=== PATIENT | female | born 1945 | race Caucasian/White ===

== ENCOUNTER 2016-04-03 20:19 | Emergency (ER) | payer OTHER ==
--- NOTE | 2016-04-03 20:30 | UC ---
Complaint Female HPI - HPI Summary HPI Summary: stinging with urination "this is like my 200 bladder infection" Denies nausea , vomiting, fevers, chills and flank pain - History Of Current Complaint Chief Complaint: UCGU Stated Complaint: BURNING URINATION Time Seen by Provider: 04/03/16 20:45 Hx Obtained From: Patient ?: No Onset/Duration: Sudden Onset, Lasting Days - 1, Still Present Timing: Constant Severity Initially: Mild Severity Currently: Mild Character: Burning - stinging Aggravating Factor(s): Urination Alleviating Factor(s): Position Associated Signs And Symptoms: Positive: Negative Related Hx: Similar Episode/Dx as: - past UTI - Allergies/Home Medications Allergies/Adverse Reactions: Allergies Allergy/AdvReac Type Severity Reaction Status Date / Time Erythromycin Allergy Severe intestinal Verified 09/09/15 08:39 infection iodine compound Allergy Severe Anaphylatic Uncoded 09/09/15 08:39 Shock PMH/Surg Hx/FS Hx/Imm Hx Previously Healthy: Yes Endocrine History Of: Denies: Diabetes, Thyroid Disease Cardiovascular History Of: Denies: Cardiac Disorders, Hypertension Respiratory History Of: Denies: COPD, Asthma GI/ History Of: Denies: Ulcer - Surgical History Surgical History: Yes Surgery Procedure, Year, and Place: Emergency surgery after post hemorrhage. 1952 Tonsils (hemorrhage) Emergency surgery to repair hemorrhage at that time. 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 resulting in hysterectomy. Ovarian cyst history. Total. surgeries is 9. 2002 tonsil regrew had second tonsillectomy. - Family History Known Family History: Positive: None - no reported cardiovascular issues in family lineage, Other - Social History Occupation: Employed Full-time Lives: With Family Alcohol Use: Occasionally Substance Use Type: None Smoking Status (MU): Never Smoked Tobacco - Immunization History Most Recent Influenza Vaccination: 2014/2015 season Most Recent Tetanus Shot: 2011 Review of Systems Constitutional: Negative Skin: Negative Eyes: Negative ENT: Negative Respiratory: Negative Cardiovascular: Negative Gastrointestinal: Negative Genitourinary: Dysuria Motor: Negative Neurovascular: Negative Musculoskeletal: Negative Neurological: Negative Psychological: Negative All Other Systems Reviewed And Are Negative: Yes Physical Exam Triage Information Reviewed: Yes Appearance: Well-Appearing, No Pain Distress, Well-Nourished Vital Signs Reviewed: Yes Eye Exam: Normal Eyes: Positive: Conjunctiva Clear ENT Exam: Normal ENT: Positive: Normal ENT inspection, Hearing grossly normal, Pharynx normal, TMs normal. Negative: Nasal congestion, Nasal drainage, Tonsillar swelling, Tonsillar exudate, Trismus, Muffled/hoarse voice Dental Exam: Normal Neck exam: Normal Neck: Positive: Supple, Nontender, No Lymphadenopathy Respiratory Exam: Normal Respiratory: Positive: Chest non-tender, Lungs clear, Normal breath sounds, No respiratory distress, No accessory muscle use Cardiovascular Exam: Normal Cardiovascular: Positive: RRR, No Murmur, Pulses Normal, Brisk Capillary Refill Abdominal Exam: Normal Abdomen Description: Positive: Nontender, No Organomegaly, Soft Bowel Sounds: Positive: Present Musculoskeletal Exam: Normal Musculoskeletal: Positive: Strength Intact, ROM Intact, No Edema Neurological Exam: Normal Neurological: Positive: Alert, Muscle Tone Normal Psychological Exam: Normal Skin Exam: Normal Diagnostics - Laboratory Diagnostic Studies Completed/Ordered: 500 leuks, 300 blood in ua Complaint Female Dx - Course Course Of Treatment: culture urine, macrobid, increase fluids follow with PCP recheck prn - Differential Dx/Diagnosis Differential Diagnosis/HQI/PQRI: Pelvic Inflammatory Disease, Renal Colic, Urinary Tract Infection Provider Diagnoses: UTI Discharge - Discharge Plan Condition: Stable Disposition: HOME Prescriptions: Nitrofurantoin Monohyd Macro [Macrobid] 100 mg PO BID #20 cap Patient Education Materials: Phenazopyridine (By mouth), Urinary Tract Infection in Women (ED) Referrals: Ulises Cardenas MD [Primary Care Provider] - If Needed
[2016-04-03] MEDS ORDERED: Nitrofurantoin Macrocrystals* 50 MG CAP PO ONE (20:57)
[2016-04-03 21:23] VITALS: BP 126/81
== END 2016-04-03 21:29 | disposition home or self-care (01) ==
LOC: UCEAST 20:19
DX: N39.0 Urinary tract infection, site not specified (principal); Z87.440 Personal history of urinary (tract) infections; Z88.1 Allergy status to other antibiotic agents
CPT/HCPCS: 81002; 87077; 87086; 87186; 99212; A9270-GY; G0463

== ENCOUNTER 2016-05-04 20:17 | Emergency (ER) | payer OTHER ==
[2016-05-04 20:32] VITALS: BP 105/62
--- NOTE | 2016-05-04 21:39 | UC ---
Respiratory Complaint HPI - HPI Summary HPI Summary: COntinued cough after a viral uri, and has noted some blood streaking on stool - History of Current Complaint Chief Complaint: UCRespiratory Stated Complaint: COUGH Time Seen by Provider: 05/04/16 20:32 Hx Obtained From: Patient Hx Last Menstrual Period: n/a ?: No Onset/Duration: Gradual Onset, Lasting Weeks Timing: Constant Severity Initially: Mild Pain Intensity: 0 Pain Scale Used: 0-10 Numeric Character: Cough: Nonproductive Aggravating Factors: Nothing Alleviating Factors: Nothing Associated Signs And Symptoms: Positive: URI - Allergies/Home Medications Allergies/Adverse Reactions: Allergies Allergy/AdvReac Type Severity Reaction Status Date / Time Erythromycin Allergy Severe intestinal Verified 05/04/16 20:33 infection iodine compound Allergy Severe Anaphylatic Uncoded 05/04/16 20:33 Shock Home Medications: Home Medications busPIRone TAB* [Buspar TAB*] 05/04/16 [History] PMH/Surg Hx/FS Hx/Imm Hx Previously Healthy: Yes Endocrine History Of: Denies: Diabetes, Thyroid Disease Cardiovascular History Of: Denies: Cardiac Disorders, Hypertension Respiratory History Of: Denies: COPD, Asthma GI/ History Of: Denies: Ulcer - Surgical History Surgical History: Yes Surgery Procedure, Year, and Place: Emergency surgery after post hemorrhage. 1952 Tonsils (hemorrhage) Emergency surgery to repair hemorrhage at that time. 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 resulting in hysterectomy. Ovarian cyst history. Total. surgeries is 9. 2002 tonsil regrew had second tonsillectomy. - Family History Known Family History: Positive: None - no reported cardiovascular issues in family lineage, Other - Social History Occupation: Employed Full-time Lives: With Family Alcohol Use: Occasionally Substance Use Type: None Smoking Status (MU): Never Smoked Tobacco - Immunization History Most Recent Influenza Vaccination: season Most Recent Tetanus Shot: 2011 Review of Systems Constitutional: Negative Skin: Negative Eyes: Negative ENT: Negative Respiratory: Cough Cardiovascular: Negative Gastrointestinal: Negative Genitourinary: Negative Motor: Negative Neurovascular: Negative Musculoskeletal: Negative Neurological: Negative Psychological: Negative All Other Systems Reviewed And Are Negative: Yes Physical Exam Triage Information Reviewed: Yes Appearance: Well-Appearing, No Pain Distress, Well-Nourished Vital Signs: Initial Vital Signs Temp 98.8 F 03/03/17 20:24 Pulse 59 05/04/16 20:24 Resp 16 05/04/16 20:24 BP 105/62 05/04/16 20:24 Pulse Ox 100 05/04/16 20:24 Eye Exam: Normal Eyes: Positive: Conjunctiva Clear ENT Exam: Normal ENT: Positive: Normal ENT inspection, Hearing grossly normal, Pharynx normal, Nasal congestion, Nasal drainage. Negative: Tonsillar swelling, Tonsillar exudate, Trismus, Muffled/hoarse voice Dental Exam: Normal Neck exam: Normal Neck: Positive: Supple, Nontender Respiratory Exam: Normal Respiratory: Positive: Chest non-tender, Lungs clear, Normal breath sounds, No respiratory distress, No accessory muscle use Cardiovascular Exam: Normal Cardiovascular: Positive: RRR, No Murmur, Pulses Normal, Brisk Capillary Refill Abdominal Exam: Normal Abdomen Description: Positive: Nontender, No Organomegaly, Soft. Negative: CVA Tenderness (R), CVA Tenderness (L), Distended, Guarding Bowel Sounds: Positive: Present Musculoskeletal Exam: Normal Musculoskeletal: Positive: Strength Intact, ROM Intact Neurological Exam: Normal Neurological: Positive: Alert, Muscle Tone Normal Psychological Exam: Normal Psychological: Positive: Normal Response To Family Skin Exam: Normal UC Diagnostic Evaluation - Laboratory O2 Sat by Pulse Oximetry: 100 Respiratory Course/Dx - Course Course Of Treatment: flonase for nasal drainage, metamucil and prep h suppos. increase fluids follow with pcp in 1 week as planned - Differential Dx/Diagnosis Differential Diagnosis/HQI/PQRI: Bronchitis, Sinusitis Provider Diagnoses: Rhinnitis, post viral cough, internal hemorroids Discharge - Discharge Plan Condition: Stable Disposition: HOME Patient Education Materials: Laxative, Bulk-forming (By mouth), Fluticasone ( Into the nose), Hemorrhoids (ED), Rhinosinusitis (ED) Referrals: Ulises Cardenas MD [Primary Care Provider] - 05/11/16 (as planned )
== END 2016-05-04 20:52 | disposition home or self-care (01) ==
LOC: UCEAST 20:17
DX: J31.0 Chronic rhinitis (principal); R05 Cough; K64.8 Other hemorrhoids; Z88.1 Allergy status to other antibiotic agents
CPT/HCPCS: 99211; G0463

== ENCOUNTER 2016-05-09 19:45 | Emergency (ER) | payer OTHER ==
[2016-05-09 20:25] VITALS: BP 146/71
[2016-05-09] MEDS ORDERED: Cefdinir 250mg/5 ml* 100 ml ORAL.SUSP PO ONE (21:37)
--- NOTE | 2016-05-09 21:37 | UC ---
Complaint Female HPI - HPI Summary HPI Summary: 3 DAYS OF DYSURIA. HAS HAD SEVERAL UTIS RECENTLY. NO FEVER, NAUSEA OR BACK PAIN. HAS HAD HYSTERECTOMY. UNSURE IF ANY BLADDER PROLAPSE. ADMITS TO HAVING STRESS INCONTINENCE. IS CONCERNED ABOUT RECURRENT UTI. - History Of Current Complaint Chief Complaint: UCGU Stated Complaint: UTI Time Seen by Provider: 05/09/16 21:08 Hx Obtained From: Patient Hx Last Menstrual Period: n/a Onset/Duration: Gradual Onset, Lasting Days, Still Present Timing: Constant Severity Initially: Moderate Severity Currently: Moderate Pain Intensity: 0 Pain Scale Used: 0-10 Numeric Character: Burning Aggravating Factor(s): Urination Alleviating Factor(s): Nothing Associated Signs And Symptoms: Negative: Fever, Back Pain, Vaginal Bleeding/ Discharge, Vaginal Discharge, Nausea, Vomiting(# Of Episodes =), Genital Swelling, Genital Blisters - Allergies/Home Medications Allergies/Adverse Reactions: Allergies Allergy/AdvReac Type Severity Reaction Status Date / Time Erythromycin Allergy Severe intestinal Verified 05/09/16 20:25 infection iodine compound Allergy Severe Anaphylatic Uncoded 05/09/16 20:25 Shock PMH/Surg Hx/FS Hx/Imm Hx Previously Healthy: Yes Endocrine History Of: Denies: Diabetes, Thyroid Disease Cardiovascular History Of: Denies: Cardiac Disorders, Hypertension Respiratory History Of: Denies: COPD, Asthma GI/ History Of: Denies: Ulcer - Surgical History Surgical History: Yes Surgery Procedure, Year, and Place: Emergency surgery after post hemorrhage. 1952 Tonsils (hemorrhage) Emergency surgery to repair hemorrhage at that time. 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 resulting in hysterectomy. Ovarian cyst history. Total. surgeries is 9. 2002 tonsil regrew had second tonsillectomy. - Family History Known Family History: Negative: Hypertension - Social History Alcohol Use: Occasionally Substance Use Type: None Smoking Status (MU): Never Smoked Tobacco - Immunization History Most Recent Influenza Vaccination: season Most Recent Tetanus Shot: 2011 Review of Systems Constitutional: Negative Respiratory: Negative Cardiovascular: Negative Gastrointestinal: Abdominal Pain Genitourinary: Dysuria, Frequency All Other Systems Reviewed And Are Negative: Yes Physical Exam Triage Information Reviewed: Yes Appearance: Well-Appearing, No Pain Distress, Well-Nourished Vital Signs: Initial Vital Signs Temp 97.4 F 05/09/16 20:22 Pulse 67 05/09/16 20:22 Resp 12 05/09/16 20:22 BP 146/71 05/09/16 20:22 Pulse Ox 99 05/09/16 20:22 Vital Signs Reviewed: Yes Eyes: Positive: Conjunctiva Clear ENT: Positive: Hearing grossly normal Neck: Positive: Supple Respiratory: Positive: No respiratory distress, No accessory muscle use Cardiovascular: Positive: Pulses Normal Abdomen Description: Positive: Soft. Negative: CVA Tenderness (R), CVA Tenderness (L), Distended, Guarding Musculoskeletal: Positive: No Edema Neurological: Positive: Alert Psychological: Positive: Age Appropriate Behavior Skin: Negative: rashes Diagnostics - Laboratory Diagnostic Studies Completed/Ordered: URINE DIP SP. GR. 1.025, TRACE BLOOD, POSITIVE NITRITES, 1+ LEUKS Complaint Female Dx - Differential Dx/Diagnosis Provider Diagnoses: UTI Discharge - Discharge Plan Condition: Stable Disposition: HOME Prescriptions: Cefdinir 250mg/5 ml* [Omnicef 250 mg/5 ml*] 300 mg PO BID #4 cap Patient Education Materials: Urinary Tract Infection in Women (ED) Referrals: Ulises Cardenas MD [Primary Care Provider] - If Needed Additional Instructions: WE WILL TREAT YOUR UTI WITH CEFDINIR TODAY. YOUR URINE WILL BE SENT FOR CULTURE. WE WILL ALSO SEND IT FOR TESTING FOR A LESS COMMONLY TESTED FOR ORGANISM WHICH IF POSITIVE WILL NEED TREATMENT WITH AN ALTERNATIVE ANTIBIOTIC. PLEASE FOLLOW-UP WITH YOUR [id number] IN [place] AND CONSIDER EVALUATION FOR PELVIC FLOOR WEAKNESS/STRESS INCONTINENCE OR BLADDER PROLAPSE THESE CONDITIONS MAY INCREASE RISK OF RECURRENT UTI. GIVEN YOUR SYMPTOMS OF STRESS INCONTINENCE YOU MAY BENEFIT FROM PELVIC FLOOR PHYSICAL THERAPY. CALL [facility] IF YOU ARE INTERESTED IN PELVIC FLOOR CONDITIONING. [phone].
[2016-05-14 14:43] LABS: Ureaplasma Source URINE; Ureaplasma parvum PCR Negative; Ureaplasma urealyticum PCR Negative
== END 2016-05-09 22:00 | disposition home or self-care (01) ==
LOC: UCEAST 19:45
DX: N39.0 Urinary tract infection, site not specified (principal); R03.0 Elevated blood-pressure reading, without diagnosis of hypertension; Z88.1 Allergy status to other antibiotic agents
CPT/HCPCS: 81003; 87077; 87086; 87186; 87798; 99213; G0463

== ENCOUNTER 2016-07-07 13:43 | Emergency (ER) | payer OTHER ==
[2016-07-07 14:18] VITALS: BP 114/59
--- NOTE | 2016-07-07 15:01 | UC ---
Complaint Female HPI - HPI Summary HPI Summary: Mild urinary burning for 3-4 days. Did at-home test strip for UTI, saw nitrites and white blood cells. Had urinary sx some months/years ago that turned out to be BV, and took 10 days of flagyl for it. Denies fever, vomiting, back pain. - History Of Current Complaint Chief Complaint: UCGU Stated Complaint: UTI COMPLAINT Time Seen by Provider: 07/07/16 14:29 Hx Obtained From: Patient Hx Last Menstrual Period: n/a ?: No Onset/Duration: Gradual Onset, Lasting Days Timing: Constant Severity Initially: Mild Severity Currently: Mild Character: Burning Aggravating Factor(s): Urination Associated Signs And Symptoms: Negative: Fever, Back Pain, Vaginal Discharge, Nausea - Allergies/Home Medications Allergies/Adverse Reactions: Allergies Allergy/AdvReac Type Severity Reaction Status Date / Time Erythromycin Allergy Severe intestinal Verified 05/09/16 20:25 infection Sulfa Antibiotics Allergy GI Upset Verified 07/07/16 14:19 iodine compound Allergy Severe Anaphylatic Uncoded 05/09/16 20:25 Shock Home Medications: Home Medications Escitalopram Oxalate [Lexapro] 5 mg PO 07/07/16 [History] Estradiol [Estrogel] 0.06 % TD 07/07/16 [History] Multiple Vitamins W/ Minerals [Multivitamin Women] 1 tab PO 07/07/16 [History] PMH/Surg Hx/FS Hx/Imm Hx Previously Healthy: Yes Endocrine History Of: Denies: Diabetes, Thyroid Disease Cardiovascular History Of: Denies: Cardiac Disorders, Hypertension Respiratory History Of: Denies: COPD, Asthma GI/ History Of: Denies: Ulcer - Surgical History Surgical History: Yes Surgery Procedure, Year, and Place: Emergency surgery after post hemorrhage. 1952 Tonsils (hemorrhage) Emergency surgery to repair hemorrhage at that time. 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 resulting in hysterectomy. Ovarian cyst history. Total. surgeries is 9. 2002 tonsil regrew had second tonsillectomy. - Family History Known Family History: Positive: None - no reported cardiovascular issues in family lineage, Other Negative: Hypertension - Social History Lives: Alone Alcohol Use: Occasionally Substance Use Type: None Smoking Status (MU): Never Smoked Tobacco - Immunization History Most Recent Influenza Vaccination: 2015/2016 season Most Recent Tetanus Shot: 2011 Review of Systems Constitutional: Negative Skin: Negative Eyes: Negative ENT: Negative Respiratory: Negative Cardiovascular: Negative Gastrointestinal: Negative Genitourinary: Dysuria Motor: Negative Neurovascular: Negative Musculoskeletal: Negative Neurological: Negative Psychological: Negative All Other Systems Reviewed And Are Negative: Yes Physical Exam Triage Information Reviewed: Yes Appearance: Well-Appearing, No Pain Distress, Well-Nourished Vital Signs: Initial Vital Signs Temp 98.0 F 07/07/16 14:14 Pulse 65 07/07/16 14:14 Resp 18 07/07/16 14:14 BP 114/59 07/07/16 14:14 Pulse Ox 97 07/07/16 14:14 Vital Signs Reviewed: Yes Eye Exam: Normal Eyes: Positive: Conjunctiva Clear ENT Exam: Normal ENT: Positive: Normal ENT inspection, Hearing grossly normal, Pharynx normal, TMs normal Dental Exam: Normal Neck exam: Normal Neck: Positive: Supple, Nontender, No Lymphadenopathy Respiratory Exam: Normal Respiratory: Positive: Chest non-tender, Lungs clear, Normal breath sounds, No respiratory distress, No accessory muscle use Cardiovascular Exam: Normal Cardiovascular: Positive: RRR, No Murmur Abdomen Description: Negative: CVA Tenderness (R), CVA Tenderness (L) Musculoskeletal Exam: Normal Neurological Exam: Normal Neurological: Positive: Alert Psychological Exam: Normal Skin Exam: Normal Complaint Female Dx - Differential Dx/Diagnosis Provider Diagnoses: dysuria Discharge - Discharge Plan Condition: Stable Disposition: HOME Prescriptions: Clindamycin SUPP (NF) [Cleocin 100 MG SUPP (NF)] 100 mg VAGINAL BEDTIME #3 sup Patient Education Materials: Dysuria (ED) Referrals: Ulises Cardenas MD [Primary Care Provider] - Additional Instructions: As we discussed, you do not have strong signs of urinary infection today. I am sending a urine culture. Swab pending to evaluate possible bacterial vaginosis or yeast vaginitis, but I am treating you for possible bacterial vaginosis.
--- NOTE | 2016-07-10 10:55 | UC ---
Progress - Progress Note Progress Note: stop cleocin. Start clotrimazole. start cipro (urine cx). F/u Dr. Cardenas (PCP) in 1-2 week for recheck.
== END 2016-07-07 15:11 | disposition home or self-care (01) ==
LOC: UCEAST 13:43
DX: R30.0 Dysuria (principal); Z88.3 Allergy status to other anti-infective agents
CPT/HCPCS: 81003; 87077; 87086; 87186; 87480; 87510; 99212; G0463

== ENCOUNTER 2016-08-21 19:58 | Emergency (ER) | payer OTHER ==
[2016-08-21 20:30] VITALS: BP 96/53
[2016-08-21] MEDS ORDERED: Cephalexin CAP* 500 MG PO ONE (23:14)
--- NOTE | 2016-09-21 14:49 | UC ---
Complaint Female HPI - HPI Summary HPI Summary: PT WITH H/O RECURRENT UTI WITH DYSURIA, FREQUENCY AND URGENCY. PT SEES A URO- RISK INTERN IN [place] AND IS SCHEDULED FOR A CYSTOSCOPY IN OCTOBER. - History Of Current Complaint Chief Complaint: UCGU Stated Complaint: UTI COMPLAINT Time Seen by Provider: 08/21/16 22:50 Hx Obtained From: Patient Hx Last Menstrual Period: n/a Onset/Duration: Gradual Onset, Lasting Days, Still Present Timing: Intermittent Severity Initially: Moderate Severity Currently: Moderate Pain Intensity: 0 Pain Scale Used: 0-10 Numeric Character: Burning Aggravating Factor(s): Urination Alleviating Factor(s): Nothing Associated Signs And Symptoms: Negative: Fever, Back Pain, Vaginal Bleeding/ Discharge, Vaginal Discharge, Nausea - Allergies/Home Medications Allergies/Adverse Reactions: Allergies Allergy/AdvReac Type Severity Reaction Status Date / Time Erythromycin Allergy Severe intestinal Verified 08/27/16 12:30 infection Sulfa Antibiotics Allergy GI Upset Verified 08/27/16 12:30 iodine compound Allergy Severe Anaphylatic Uncoded 08/27/16 12:30 Shock Home Medications: Home Medications Trimethoprim TAB* 100 mg PO Q12H 08/21/16 [History Confirmed 08/24/16] PMH/Surg Hx/FS Hx/Imm Hx - Additional Past Medical History Additional PMH: FREQUENT UTI - Surgical History Surgical History: Yes Surgery Procedure, Year, and Place: Emergency surgery after post hemorrhage. 1952 Tonsils (hemorrhage) Emergency surgery to repair hemorrhage at that time. 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 [employer] surgeries post hemorrhage, history of endometriosis with scraping of tissue. resulting in hysterectomy. Ovarian cyst history. Total. surgeries is 9. 2002 tonsil regrew had second tonsillectomy. - Family History Known Family History: Positive: None - no reported cardiovascular issues in family lineage, Other Negative: Hypertension - Social History Alcohol Use: Occasionally Substance Use Type: None Smoking Status (MU): Never Smoked Tobacco - Immunization History Most Recent Influenza Vaccination: season Most Recent Tetanus Shot: 2011 Review of Systems Constitutional: Negative Respiratory: Negative Cardiovascular: Negative Gastrointestinal: Abdominal Pain Genitourinary: Dysuria, Frequency, Urgency All Other Systems Reviewed And Are Negative: Yes Physical Exam Triage Information Reviewed: Yes Appearance: Well-Appearing, No Pain Distress, Well-Nourished Vital Signs: Initial Vital Signs Temp 98.9 F 08/21/16 20:27 Pulse 57 08/21/16 20:27 Resp 20 08/21/16 20:27 BP 96/53 08/21/16 20:27 Pulse Ox 98 08/21/16 20:27 Vital Signs Reviewed: Yes Eyes: Positive: Conjunctiva Clear ENT: Positive: Hearing grossly normal Neck: Positive: Supple Respiratory: Positive: No respiratory distress, No accessory muscle use Cardiovascular: Positive: Pulses Normal Abdomen Description: Positive: Other: - MILD SUPRAPUBIC TENDERNESS. Negative: CVA Tenderness (R), CVA Tenderness (L), Distended, Guarding Musculoskeletal: Positive: No Edema Neurological: Positive: Alert Psychological: Positive: Age Appropriate Behavior Skin: Negative: rashes Diagnostics - Laboratory Diagnostic Studies Completed/Ordered: URINE DIP SP. GR. 1.020, 2+ LEUKS, POS NITRITES Complaint Female Dx - Differential Dx/Diagnosis Provider Diagnoses: UTI Discharge - Discharge Plan Condition: Stable Disposition: HOME Prescriptions: Cephalexin CAP* [Keflex 500 CAP*] 500 mg PO BID #12 cap Patient Education Materials: Urinary Tract Infection in Women (ED) Referrals: Masha Mustafa MD [Primary Care Provider] - If Needed Additional Instructions: URINE DIP POSITIVE FOR UTI. WILL SEND FOR CULTURE AND TREAT WITH KEFLEX FOR 7 DAYS. FOLLOW-UP WITH YOUR URO-RISK INTERN IN [place]. CALL ME HERE IF YOU DO NOT FEEL YOU ARE RESPONDING TO THE ANTIBIOTICS.
== END 2016-08-21 23:24 | disposition home or self-care (01) ==
LOC: UCEAST 19:58
DX: N39.0 Urinary tract infection, site not specified (principal); Z88.1 Allergy status to other antibiotic agents; Z88.2 Allergy status to sulfonamides
CPT/HCPCS: 81003; 87077; 87086; 87186; 99212; A9270-GY; G0463

== ENCOUNTER 2016-08-27 11:44 | Day surgery (SDC) | payer OTHER ==
--- NOTE | 2016-08-23 15:48 | HP ---
PREOPERATIVE HISTORY AND PHYSICAL: DATE OF VISIT/ENCOUNTER: 08/23/2016 DATE OF ADMISSION: She is scheduled for right cataract surgery on 08/27/[address]. Rubin Anthony at [facility]. 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 She is scheduled for cataract surgery on 08/27/2016 at [facility] to be done by Dr. Moy Anthony. PAST MEDICAL HISTORY: Includes a previous hysterectomy and bilateral ovariectomy in the early . She had a peritonsillar abscess in 2000. She has a history of mild hyperlipidemia, which does no t require medication treatment. She also has a history of Gilbert's syndrome with fasting bilirubin in the range of 1.5 to 2.0 without any symptoms or complications. She also has a longstanding hist ory of recurrent urinary tract infections. CURRENT MEDICATIONS: 1. Lexapro 10 mg half tab per day. 2. Valtrex 500 mg t.i.d. p.r.n. for her herpes simplex outbreaks. 3. Estrace vaginal cream applied to be urethral opening daily. 4. Lunesta 2 mg h.s. p.r.n. insomnia. 5. Ambien 5 mg h.s. p.r.n. insomnia, which she uses very rarely. 6. She is currently on trimethoprim 100 mg for prevention of urinary tract infection and she is cur rently on a 7-day course of Keflex 100 mg once a day, which will be completed on 08/28/2016. This i s being used for recurrent urinary tract infection. ALLERGIES: She is allergic to IV CONTRAST, allergic to SHELLFISH. She has a number of environmenta l allergens including POLLENS and HOUSE DUST. MORPHINE causes agitation. The following antibiotics do not cause allergic reactions but cause GI upset, these include Biaxin, Macrodantin, and erythrom ycin. Fosamax is also associated with diarrhea but not a true allergy. 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 She auguste s never smoked cigarettes. She very rarely drinks any alcohol. Mother had coronary artery disease and myocardial infarction. Father chronic lymphocytic leukemia, myelodysplasia, and cutaneous melan jocelyn. One sister had a cutaneous melanoma. Maternal grandmother and maternal aunt both had breast c ancer and maternal grandfather had diabetes. REVIEW OF SYSTEMS: Positive for symptoms of right cataract, mainly scattering of right when driving . She also has symptoms of urinary frequency and dysuria and is currently being treated for urinary tract infection. Other than those symptoms, she enjoys good health. She specifically denies any p roblems with shortness of breath, chest pain, palpitations, dizzy spells. She has no GI symptoms. No neurologic symptoms. PHYSICAL EXAMINATION VITAL SIGNS: Blood pressure is 130/70; pulse 68 and regular. HEENT: Normal Ears, Nose, and Throat. No signs of inflammation or infection. No adenopathy. Norm al thyroid. Normal carotids without bruits. LUNGS: Clear. HEART: Regular. Normal S1 and S2. No murmurs, gallops, or extra sounds. No JVD. ABDOMEN: Soft and nontender. No masses or organomegaly. BACK: No CVA tenderness. EXTREMITIES: No cyanosis, clubbing, or edema. No signs of phlebitis. NEUROLOGIC: Intact with normal refluxes. SKIN: No rashes or suspicious lesions. IMPRESSION: Right cataract. She is an acceptable medical risk for anesthesia and surgery. [id number]/[facility] #: [id number]
[~2016-08-27 11:44] MED LIST: Acetaminophen TAB* 325 MG PO PRN; Buffered Lidocaine 0.9% SYRIN* 5 ML/SYR SYRINGE INTRADERM ONE
[2016-08-27] MEDS ORDERED: Midazolam* 1 MG/ML 2 ML VIAL (2 MG) ONE ×2 (12:40→13:02)
[2016-08-27 13:43] VITALS: BP 137/71
[2016-08-27] MEDS ORDERED: Lidocaine 1% MPF* 2 ML VIAL ONE (14:22)
[2016-08-27] MEDS ORDERED: Povidone Iodine 5% OPTH* 30 ML BTL ONE (14:22)
[2016-08-27] MEDS ORDERED: Phenylephrine 2.5% OPTH.SOL* 2 ML BTL ONE (14:22)
[2016-08-27] MEDS ORDERED: Neomycin/Polymy/Dex OPHTH.OIN* 3.5 GM ONE (14:22)
[2016-08-27] MEDS ORDERED: Cyclopentolate 1% OPTH.SOL* 2 ML BTL ONE (14:22)
[2016-08-27] MEDS ORDERED: Flurbiprofen 0.03% OPTH.SOL* 2.5 ML BTL ONE (14:22)
[2016-08-27] MEDS ORDERED: Tropicamide 1% OPTH.SOL* BTL ONE (14:22)
[2016-08-27] MEDS ORDERED: acetaZOLAMIDE TAB* 250 MG ONE (14:22)
[2016-08-27] MEDS ORDERED: Buffered Lidocaine 0.9% SYRIN* 5 ML/SYR SYRINGE ONE (14:23)
[2016-08-27] MEDS ORDERED: Tetracaine 0.5% OPTH.SOL 4 ML* 1 DROP BTL ONE (14:23)
--- NOTE | 2016-08-28 09:05 | OP ---
DATE OF OPERATION: 08/27/16 - [facility] DATE OF : 49 SURGEON: Moises Peterson MD ANESTHESIOLOGIST: Moy Montenegro MD ANESTHESIA: Monitored anesthesia care. PRE-OP DIAGNOSIS: Cataract, right eye. POST-OP DIAGNOSIS: Cataract, right eye. OPERATIVE PROCEDURE: Cataract surgery of the right eye. IMPLANTS: SN60WF 18.5 diopter lens to the right eye. COMPLICATIONS: None. DESCRIPTION OF PROCEDURE: The patient was given phenylephrine 2.5% and cyclopentolate 1% eye drops to the operative eye in the preoperative area. The patient was brought to the operating room where a time-out was taken to identify the correct patient, site, and side of surgery. The patient's right eye was prepped and draped in the usual sterile fashion with 5% Betadine. A second time- out was taken to verify the correct patient, site, and side of surgery, and correct lens selection. A lid speculum was placed to the right eye. A 1-mm paracentesis blade was used to make a clear corneal incision in the superotemporal position. Preservative free 1% lidocaine was injected into the anterior chamber. DisCoVisc was injected in the anterior chamber. A 2.75 mm keratome blade was used to make a triplanar incision at the inferotemporal position. A cystotome initiated the capsulorrhexis which was completed with Utrata forceps in a continuous and curvilinear manner. Hydrodissection of the lens was performed with BSS on a cannula. The lens could be spun in a capsular bag. The phacoemulsification handpiece was used with a [id number] technique to remove to nucleus in its entirety with 12.3 CDE. The I/A handpiece was then used to removed the residual cortical lens material. DisCoVisc was injected to inflate the capsular bag. The planned SN60WF 18.5 diopter lens was injected in the capsular bag. The residual DisCoVisc was removed from the eye with the I/A handpiece. The corneal incisions were hydrated and no leaks occurred at physiologic pressure around 20 mmHg per palpation. The lid speculum was removed and drapes removed. Maxitrol ointment was placed to the surface of the operative eye. Adhesive patch and shield was placed on the operative eye. The patient was taken to the postoperative area in stable condition. [id number]/[facility] #: [id number] MTDD
== END 2016-08-27 14:00 | disposition home or self-care (01) ==
LOC: OREAST 11:44
PROVIDERS: ATTEND Student in an Organized Health Care Education/Training Program
DX: H25.11 Age-related nuclear cataract, right eye (principal)
CPT/HCPCS: A9270-GY; J2250; V2632

== ENCOUNTER 2017-02-05 21:36 | Emergency (ER) | payer OTHER ==
[2017-02-05 21:57] VITALS: BP 110/60
--- NOTE | 2017-02-05 22:18 | UC ---
Complaint Female HPI - HPI Summary HPI Summary: Pt presents with episode of dysuria this morning. Pt states has frequent UTI and this felt similar. Pt states 1 dose of macrobid and drank water. Pt states her symptoms have resolved. Pt's last UTI approx 6months ago and was placed on prophylatic macrobid by urogenital specialist in [place]. pt denies fevers, chill. no n/v/d. No vaginal discharge, odor, itching. No lesions. Pt states had diarrhea on Saturday and was not home so wasn't able to "clean as well as I'd like." Pt's medications reviewed this visit - History Of Current Complaint Chief Complaint: UCGU Stated Complaint: PAINFUL URINATION Time Seen by Provider: 02/05/17 21:46 Hx Obtained From: Patient Hx Last Menstrual Period: hysterectomy ?: No Onset/Duration: Sudden Onset Timing: Intermittent Severity Initially: Mild Severity Currently: None Pain Intensity: 0 - Allergies/Home Medications Allergies/Adverse Reactions: Allergies Allergy/AdvReac Type Severity Reaction Status Date / Time Erythromycin Allergy Severe intestinal Verified 02/05/17 21:45 infection Sulfa Antibiotics Allergy GI Upset Verified 02/05/17 21:45 iodine compound Allergy Severe Anaphylatic Uncoded 02/05/17 21:45 Shock Home Medications: Home Medications Nitrofurantoin Monohyd Macro [Macrobid] 50 mg PO 02/05/17 [History] PMH/Surg Hx/FS Hx/Imm Hx Previously Healthy: Yes GI/ History: Other Other GI/ History: recurrent UTI - Surgical History Surgical History: Yes Surgery Procedure, Year, and Place: Emergency surgery after post hemorrhage. 1952 Tonsils (hemorrhage) Emergency surgery to repair hemorrhage at that time. 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 resulting in hysterectomy. Ovarian cyst history. Total. surgeries is 9. 2002 tonsil regrew had second tonsillectomy. - Family History Known Family History: Positive: None - no reported cardiovascular issues in family lineage, Other Negative: Hypertension - Social History Alcohol Use: Weekly Alcohol Amount: 1-2 glasses of wine per week Substance Use Type: None Smoking Status (MU): Never Smoked Tobacco - Immunization History Most Recent Influenza Vaccination: season Most Recent Tetanus Shot: 2011 Review of Systems Constitutional: Negative Genitourinary: Dysuria, Frequency, Urgency All Other Systems Reviewed And Are Negative: Yes Physical Exam Triage Information Reviewed: Yes Appearance: Well-Appearing, No Pain Distress, Well-Nourished Vital Signs: Initial Vital Signs Temp 98.8 F 02/05/17 21:46 Pulse 76 02/05/17 21:46 Resp 18 02/05/17 21:46 BP 110/60 02/05/17 21:46 Pulse Ox 99 02/05/17 21:46 Vital Signs Reviewed: Yes Eye Exam: Normal Eyes: Positive: Conjunctiva Clear ENT: Positive: Hearing grossly normal Dental Exam: Normal Neck exam: Normal Neck: Positive: 1 Respiratory Exam: Normal Respiratory: Positive: Chest non-tender, Lungs clear, Normal breath sounds, No respiratory distress, No accessory muscle use Cardiovascular Exam: Normal Cardiovascular: Positive: RRR, No Murmur, Pulses Normal Abdominal Exam: Normal Abdomen Description: Positive: Nontender, No Organomegaly, Soft. Negative: CVA Tenderness (R), CVA Tenderness (L) Bowel Sounds: Positive: Present Musculoskeletal Exam: Normal Neurological Exam: Normal Psychological Exam: Normal Skin Exam: Normal Complaint Female Dx - Course Course Of Treatment: Pt with episode of dysuria this morning. Took 1 dose macrobid. currently no sx. pt with h/o recurrent UTI - followed by specialist in [place]. Reviewd today's urine with pt. will send culture. Rx for Macrobid - pt will only fill it + cx. Pt given info to call for result if no call from us. pt also given home collection kit and lab order slip if sx recurr with reults CC to her PCP. PT comfortable and in agreement with plan - Differential Dx/Diagnosis Provider Diagnoses: dysuria Discharge - Discharge Plan Condition: Stable Disposition: HOME Prescriptions: Fluconazole 100 MG TAB* [Diflucan 100 MG TAB*] 100 mg PO DAILY PRN #1 tab PRN Reason: yeast infection Nitrofurantoin Monohyd Macro [Macrobid] 100 mg PO BID #20 cap Patient Education Materials: Dysuria (ED) Referrals: Kelsey Quinonez MD [Primary Care Provider] - Additional Instructions: - Stay well hydrated. Drink plenty of non-alcoholic, non-caffinated beverage - Your urine sample has been sent for a culture. These results take 48 hours to return. We will contact you if you should start your antibiotics. You may contact us to get your culture results - If your symptoms return, you should bring another specimen to the lab with the lab slip given - you have been given a script for antibiotic as well as medication to treat a yeast infection as needed.
--- NOTE | 2017-02-07 16:43 | UC ---
Progress - Progress Note Progress Note: NOTIFY PT NO UTI STOP ANTIBIOTIC SEE PMD IF STILL SYMPTOMATIC
== END 2017-02-05 22:23 | disposition home or self-care (01) ==
LOC: UCEAST 21:36
DX: R30.0 Dysuria (principal); R35.0 Frequency of micturition; R39.15 Urgency of urination; Z87.440 Personal history of urinary (tract) infections; Z88.1 Allergy status to other antibiotic agents; Z88.2 Allergy status to sulfonamides
CPT/HCPCS: 81003; 87086; 99212; G0463

== ENCOUNTER 2019-01-06 20:06 | Emergency (ER) | payer OTHER ==
[2019-01-06 20:31] VITALS: BP 117/66
--- NOTE | 2019-01-06 21:55 | UC ---
Throat Pain/Nasal Stephen HPI - HPI Summary HPI Summary: 73 year old female with PMh + for sinus infections in the past. Patient presents with cold stympoms ~ 3- weeks ago, improved, howevere developed sinus symptoms ~ 8 days ago. + sinus pressure/ pain, drainage with thick mucous worse in the AM. Mild cough, mild throat pain. No fever, chills. no ear pain. treating with sinus lavage, OTC medications with mild betterment. - History of Current Complaint Chief Complaint: UCRespiratory Stated Complaint: COLD SYMPTOMS Time Seen by Provider: 01/06/19 21:29 Hx Obtained From: Patient Hx Last Menstrual Period: hysterectomy ?: No Onset/Duration: Sudden Onset, Lasting Days - 8 days Severity: Mild Pain Intensity: 0 Pain Scale Used: 0-10 Numeric Cough: Productive Associated Signs & Symptoms: Positive: Sinus Discomfort, Nasal Discharge. Negative: Fever, Vomiting, Rash - Allergies/Home Medications Allergies/Adverse Reactions: Allergies Allergy/AdvReac Type Severity Reaction Status Date / Time erythromycin base Allergy intestinal Verified 01/06/19 20:31 infection Sulfa (Sulfonamide Allergy GI Verified 01/06/19 20:31 Antibiotics) iodine compound Allergy Severe Anaphylatic Uncoded 01/06/19 20:31 Shock Home Medications: Home Medications Benzonatate CAP* [Tessalon 100 MG CAP*] 100 mg PO TID PRN 01/06/19 [History Confirmed 01/06/19] Escitalopram * [Lexapro 5 mg (NF)] 5 mg PO DAILY 01/06/19 [History Confirmed 07/20] PMH/Surg Hx/FS Hx/Imm Hx Previously Healthy: Yes - Surgical History Surgical History: Yes Surgery Procedure, Year, and Place: Emergency surgery after post hemorrhage. 1952 Tonsils (hemorrhage) Emergency surgery to repair hemorrhage at that time. 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 [employer] surgeries post hemorrhage, history of endometriosis with scraping of tissue. resulting in hysterectomy. Ovarian cyst history. Total. surgeries is 9. 2002 tonsil regrew had second tonsillectomy. - Family History Known Family History: Positive: None - no reported cardiovascular issues in family lineage, Other Negative: Hypertension - Social History Occupation: Employed Full-time Alcohol Use: Weekly Alcohol Amount: 1/week Substance Use Type: None Smoking Status (MU): Never Smoked Tobacco - Immunization History Most Recent Influenza Vaccination: season Most Recent Tetanus Shot: 2011 Review of Systems All Other Systems Reviewed And Are Negative: Yes Constitutional: Negative: Fever, Chills, Fatigue ENT: Positive: Sore Throat, Nasal Discharge, Sinus Congestion, Sinus Pain/ Tenderness Respiratory: Positive: Cough. Negative: Shortness Of Breath Is Patient Immunocompromised?: No Physical Exam Triage Information Reviewed: Yes Appearance: Well-Appearing, No Pain Distress, Well-Nourished Vital Signs: Initial Vital Signs Temp 98.8 F 01/06/19 20:23 Pulse 60 01/06/19 20:23 Resp 16 01/06/19 20:23 BP 117/66 01/06/19 20:23 Pulse Ox 98 01/06/19 20:23 Vital Signs Reviewed: Yes Eyes: Positive: Conjunctiva Clear ENT: Positive: Hearing grossly normal, Pharynx normal, TMs normal, Sinus tenderness, Other - lesions noted at l tongue base, pt states have been present since 10/2018.. Negative: Pharyngeal erythema, TM bulging, TM dull, TM red, Tonsillar swelling, Tonsillar exudate, Uvula midline Neck: Positive: Supple, Nontender, No Lymphadenopathy. Negative: Nuchal Rigidity, Enlarged Nodes @ Respiratory: Positive: Chest non-tender, Lungs clear, Normal breath sounds, No respiratory distress, No accessory muscle use. Negative: Respiratory distress, Decreased breath sounds, Crackles, Rhonchi, Stridor, Wheezing Cardiovascular: Positive: RRR, No Murmur Neurological Exam: Normal Psychological Exam: Normal Throat Pain/Nasal Course/Dx - Course Course Of Treatment: Sinusitis: - ANtibiotics as directed, stop with loose stools/ abdominal cramping - probiotic while taking antibiotics - Increase fluid intake - Over the counter medications as needed for symptoms - REturn or follow up with primary physician within 2-3 days if no improvement - Differential Dx/Diagnosis Differential Diagnosis/HQI/PQRI: Pharyngitis, Sinusitis, URI Provider Diagnosis: Sinusitis Discharge ED - Sign-Out/Discharge Documenting (check all that apply): Patient Departure All imaging exams completed and their final reports reviewed: No Studies - Discharge Plan Condition: Good Disposition: HOME Prescriptions: Levofloxacin TAB* [Levaquin 500 Tab*] 500 mg PO DAILY #5 tab Patient Education Materials: Sinusitis (ED) Referrals: Kelsey Quinonez MD [Primary Care Provider] - Additional Instructions: - ANtibiotics as directed, stop with loose stools/ abdominal cramping - probiotic while taking antibiotics - Increase fluid intake - Over the counter medications as needed for symptoms - REturn or follow up with primary physician within 2-3 days if no improvement - Billing Disposition and Condition Condition: GOOD Disposition: Home
[2019-01-06] MEDS ORDERED: Levofloxacin TAB* 250 MG PO ONE (22:00)
== END 2019-01-06 22:14 | disposition home or self-care (01) ==
LOC: UCEAST 20:06
DX: J32.9 Chronic sinusitis, unspecified (principal); J02.9 Acute pharyngitis, unspecified; R05 Cough; R07.0 Pain in throat; R09.89 Other specified symptoms and signs involving the circulatory and respiratory systems; Z88.1 Allergy status to other antibiotic agents; Z88.2 Allergy status to sulfonamides; Z91.09 Other allergy status, other than to drugs and biological substances
CPT/HCPCS: 99212; A9270-GY; G0463